=== PATIENT | female | born 1955 | race Caucasian/White ===

== ENCOUNTER → 2020-12-16 | Outpatient (CLI) | payer BC, OTHER ==
[~2020-12-16] MED LIST: BUPR300T49 PO; NICO2LOZ8 PO; vitamin b-6 PO
[2020-12-16 12:40] LABS: INTERNATIONAL NORMALIZED RATIO 0.93 (0.93-1.1)
[2020-12-16 12:41] LABS: ALBUMIN 3.8 g/dL (3.4-5.0); ANION GAP 7 mmol/L (5-15); BASOPHILS % (AUTO) 0 % (0-1); CALCIUM 9.1 mg/dL (8.5-10.1); CHLORIDE 108 mmol/L (98-107); EOSINOPHILS % (AUTO) 0 % (1-7); LYMPHOCYTES % (AUTO) 24 % (22-44); MD NO; MEAN CORPUSCULAR HEMOGLOBIN 32.9 pg (27.0-34.8); MEAN CORPUSCULAR HGB CONC 33.5 g/dL (32.4-35.8); MEAN PLATELET VOLUME 8.6 fL (7.4-10.4); MONOCYTES % (AUTO) 8 % (2-9); NEUTROPHILS % (AUTO) 68 % (42-75); PLATELET COUNT 175 x10^3/uL (130-400); RED BLOOD COUNT 4.09 x10^6/uL (3.82-5.3); RED CELL DISTRIBUTION WIDTH 14.1 % (9.6-15.2)
[2020-12-16 12:45] LABS: ALANINE AMINOTRANSFERASE 28 U/L (12-78); ALKALINE PHOSPHATASE 55 U/L (45-117); BILIRUBIN,TOTAL 0.7 mg/dL (0.2-1.0); CREATININE 0.77 mg/dL (0.55-1.02); TOTAL PROTEIN 7.2 g/dL (6.4-8.2)
== END | disposition home or self-care (01) ==
LOC: STAR 11:09
PROVIDERS: ATTEND Obstetrics & Gynecology
DX: Z01.812 Encounter for preprocedural laboratory examination (principal); Z20.822 Contact with and (suspected) exposure to COVID-19; C56.9 Malignant neoplasm of unspecified ovary; Z45.2 Encounter for adjustment and management of vascular access device; I44.4 Left anterior fascicular block
CPT/HCPCS: 71046; 80053; 85025; 85610; 85730; 87635; 93005

== ENCOUNTER 2020-12-22 05:41 | Day surgery (SDC) | payer BC ==
[~2020-12-22] VITALS: Ht 167.6 cm; Wt 65.0 kg
[2020-12-22 06:41] VITALS: BP 134/89
[2020-12-22] MEDS ORDERED: EPINEPHRINE 1 MG/ML, 1ML ONE (06:58)
[2020-12-22] MEDS ORDERED: BUPIVACAINE/PF 0.25% ONE (06:58)
[2020-12-22] MEDS ORDERED: VISIPAQUE 270 MG/ML, 50ML BOTTLE ONE (06:58)
[2020-12-22] MEDS ORDERED: HEPARIN 1,000 UNITS/ML, 10ML ONE (06:58)
[2020-12-22] MEDS ORDERED: CEFOTETAN PMX 2GM/50ML 50 ML IVPB ONE (07:00)
[2020-12-22] MEDS ORDERED: LACTATED RINGERS 1,000 ML IV SCH (07:00)
[2020-12-22] MEDS ORDERED: CHLORHEXIDINE 15 ML UDC MM ONE (07:00)
[2020-12-22] MEDS ORDERED: FENTANYL PF 100 MCG/2ML ONE (07:16)
[2020-12-22] MEDS ORDERED: MIDAZOLAM 1 MG/ML, 2ML ONE (07:16)
[2020-12-22] MEDS ORDERED: PROMETHAZINE 25 MG/ML, 1ML IVPush PRN (07:30)
[2020-12-22] MEDS ORDERED: FENTANYL PF 100 MCG/2ML IV PRN (07:30)
[2020-12-22] MEDS ORDERED: ONDANSETRON 2MG/ML, 2ML IVPush PRN (07:30)
[2020-12-22] MEDS ORDERED: LABETALOL 5MG/ML, 20ML IV PRN (07:30)
[2020-12-22] MEDS ORDERED: OXYcodone 5 MG/5 ML ORAL.SOL UDC PO PRN (07:30)
[2020-12-22] MEDS ORDERED: hydrALAzine 20 MG/ML, 1ML IV PRN (07:30)
[2020-12-22] MEDS ORDERED: ACETAMINOPHEN 325 MG TABLET PO PRN (07:30)
[2020-12-22] MEDS ORDERED: EPHEDRINE 50 MG/ML, 1ML IVPush PRN (07:30)
[2020-12-22] MEDS ORDERED: HYDROmorphone 1 MG/ML, 1ML INJ IVPush PRN (07:30)
[2020-12-22] MEDS ORDERED: DEXAMETHASONE 4 MG/ML, 5ML ONE (07:34)
[2020-12-22] MEDS ORDERED: KETOROLAC 30 MG/1 ML ONE (07:35)
[2020-12-22] MEDS ORDERED: LIDOCAINE-MPF 2% ,5ML ONE (07:35)
[2020-12-22] MEDS ORDERED: PROPOFOL 10 MG/ML, 20ML ONE (07:35)
[2020-12-22] MEDS ORDERED: ONDANSETRON 2MG/ML, 2ML ONE (07:36)
[2020-12-22] MEDS ORDERED: EPHEDRINE 50 MG/ML, 1ML ONE (07:58)
[2020-12-22] MEDS ORDERED: OXYcodone 5 MG/5 ML ORAL.SOL UDC ONE (09:03)
[2020-12-22] MEDS ORDERED: ACETAMINOPHEN 650 MG/20.3 ML UDC ONE (09:03)
== END 2020-12-22 10:36 | disposition home or self-care (01) ==
LOC: OUT 05:41
PROVIDERS: ATTEND Obstetrics & Gynecology
DX: C56.9 Malignant neoplasm of unspecified ovary (principal); Z79.899 Other long term (current) drug therapy; Z87.891 Personal history of nicotine dependence; Z90.710 Acquired absence of both cervix and uterus; Z90.79 Acquired absence of other genital organ(s); Z90.722 Acquired absence of ovaries, bilateral; Z98.890 Other specified postprocedural states
CPT/HCPCS: 36415; 36561; 71045; 77001; 86850; 86900; 86923; C1788; J0171; J1100; J1644; J1885; J2250; J2405; J2704; J3010; J7120; Q9966